=== PATIENT | male | born 1990 ===

== ENCOUNTER 2019-05-03 08:07 | Emergency (ER) | payer SELFPAY ==
[~2019-05-03] VITALS: Ht 193 cm; Wt 136.1 kg
[2019-05-03 08:16] VITALS: BP 126/87
[2019-05-03] MEDS ORDERED: DEXAMETHASONE 4 MG TABLET PO ONE (09:00)
[2019-05-03] MEDS ORDERED: DEXAMETHASONE 4 MG/ML, 1ML PO ONE (09:00)
[2019-05-03] MEDS ORDERED: DEXAMETHASONE 4 MG/ML, 1ML ONE (09:05)
--- NOTE | 2019-05-03 09:13 | NUR ---
Patient/Caregiver given discharge instructions and they have confirmed that they understand the instructions. Patient ambulatory with steady gait. PT LEFT WITH ALL PERSONAL BELONGINGS.
--- NOTE | 2019-05-03 09:14 | NUR ---
VERBAL ORDER FROM TENZIN ATKINS FOR LIQUID DECADRON.
== END 2019-05-03 09:16 | disposition home or self-care (01) ==
LOC: ED 09:10
DX: J02.0 Streptococcal pharyngitis (principal)
CPT/HCPCS: 99283